=== PATIENT | female | born 1945 | race Caucasian/White ===

== ENCOUNTER → 2022-05-09 | Outpatient (CLI) | payer MEDICARE ==
[~2022-05-09] MED LIST: ASCO-262 PO; ASPI-999 PO; CALC-823 PO; CHOL200074 PO; DOXY100T2 PO; FERR-84 PO; GABA300C PO; GABA300S2 PO; MTP25TSR PO; MULT-1060 PO; PANT20TA18 PO; PANT40TA52 PO; SACU1TAB2 PO
== END ==
LOC: CARDFS 12:50
PROVIDERS: ATTEND Internal Medicine Cardiovascular Disease
DX: I10 Essential (primary) hypertension (principal)
CPT/HCPCS: 93306

== ENCOUNTER 2022-07-03 05:46 | Outpatient (CLI) | payer MEDICARE ==
[~2022-07-03] VITALS: Ht 168.9 cm; Wt 73.5 kg
[2022-07-03] MEDS ORDERED: SACU1TAB2 PO (11:55)
[2022-07-03] MEDS ORDERED: MTP25TSR PO (11:55)
== END 2022-07-03 11:57 | disposition home or self-care (01) ==
LOC: PREOP 05:46
PROVIDERS: ATTEND Surgery
DX: Z01.818 Encounter for other preprocedural examination (principal)

== ENCOUNTER 2022-07-15 10:07 | Day surgery (SDC) | payer MEDICARE ==
[~2022-07-15] VITALS: Ht 168.9 cm; Wt 73.5 kg
[2022-07-15] MEDS ORDERED: LACTATED RINGERS 1,000 ML IV STA (10:12)
[2022-07-15] MEDS ORDERED: HURRICAINE EXT TUBE (BENZOCAINE) XX PRN (10:15)
[2022-07-15] MEDS ORDERED: LACTATED RINGERS 1,000 ML IV ONE (10:16)
[2022-07-15 10:37] VITALS: BP 147/78
--- NOTE | 2022-07-15 10:52 | Progress Note-Pre Operative ---
Pre-Operative Progress Note Date of Available H&P: Jun 18, 2022 Date H&P Reviewed: Jul 15, 2022 Time H&P Reviewed: 10:49 History & Physical: H&P Reviewed, Patient Examed, No changes noted Pre-Operative Diagnosis: Epigastric pain JESSICA KIM DO Jul 15, 2022 10:52
[2022-07-15] MEDS ORDERED: proPOfol 200 MG/20 ML (DIPRIVAN) VIAL IV ONE (11:28)
[2022-07-15 11:45] VITALS: BP 160/79
[2022-07-15 11:50] VITALS: BP 120/58
[2022-07-15 12:10] VITALS: BP 158/97
--- NOTE | 2022-07-15 12:19 | Progress Note-Post Operative ---
Post-Operative Progess Note Surgeon (s)/Drafting Teacher (s) Surgeon JESSICA KIM DO Drafting Teacher: none Pre-Operative Diagnosis Epigastric pain Post-Operative Diagnosis Gastritis Hiatal hernia Gastric polyp Procedure & Operative Findings Date of Procedure 07/15/22 Procedure Performed/Findings EGD with polyp removal by hot snare EGD with bx PROCEDURE NOTE: After informed consent was obtained, the patient was brought to the endoscopy suite, placed in bed in left lateral decubitus position. She was administered IV sedation by the EMERGENCY DEPARTMENT MANAGER who then monitored vitals the entire time, heart rate, blood pressure and pulse ox and the scope was inserted down the mouth through the esophagus into the stomach. On the way down, noted some mild esophagitis, took a picture, pushed into the stomach and noted mass and gastritis. Pushed past the antrum into the duodenum; duodenum looked good. Pulled back and did a biopsy of the antrum. I thought at first the mass may be an ulcer, but realized it looked like a polyp. Elected to remove polyp with a hot snare; completely removed it. Then retroflexed the scope, saw a small hiatal hernia, took a picture of this and then pulled the scope into the GE junction In the GE junction did a biopsy. Pushed the scope back into the stomach, suctioned all the air out of the stomach. At this point pulled the scope up the esophagus and out the mouth. The patient tolerated the procedure, and she recovered in endoscopy suite. Anesthesia Type IV sedation by EMERGENCY DEPARTMENT MANAGER Estimated Blood Loss Estimated blood loss (mL): scant Specimens/Packing Specimens Removed antral bx GE jxn bx Gastric polyp JESSICA KIM DO Jul 15, 2022 12:19
--- NOTE | 2022-07-15 12:20 | Endoscopy Discharge Instruct ---
Endo Procedure/Findings Findings 1.: Polyp 2.: Gastritis 3.: Hiatal Hernia Discharge Instructions - Activity: You might feel a little sleepy until tomorrow. This is due to the medicine you received to relax you. Until tomorrow, you should: NOT drive a car, operate machinery or power tools. NOT drink any alcoholic beverages. NOT make any important decisions or sign importortant papers. Do not return to work until tomorrow, unless otherwise instructed. Resume previous activities tomorrow. Diet: Start by taking liquids. If you tolerate liquids, advance to solid food. 1.: EGD in 1 year Notify Physician - If you experience excessive bleeding, unusual abdominal pain, fever, or chest p ain, contact your doctor immediately. JESSICA KIM DO Jul 15, 2022 12:20
[2022-07-15 12:25] VITALS: BP 158/97
--- NOTE | 2022-07-15 14:43 | Anesthesia-General Post-Op ---
MAC Patient Condition Mental Status/LOC: Same as Preop Cardiovascular: Satisfactory Nausea/Vomiting: Absent Respiratory: Satisfactory Pain: Controlled Complications: Absent Post Op Complications Complications None Follow Up Care/Instructions Patient Instructions None needed. Anesthesiology Discharge Order Discharge Order Patient is doing well, no complaints, stable vital signs, no apparent adverse anesthesia problems. No complications reported per nursing. AMBER MCKAY CRNA Jul 15, 2022 14:43
== END 2022-07-15 12:30 | disposition home or self-care (01) ==
LOC: ENDO 10:07
PROVIDERS: ATTEND Surgery
DX: K31.7 Polyp of stomach and duodenum (principal); K29.60 Other gastritis without bleeding; K44.9 Diaphragmatic hernia without obstruction or gangrene; K21.00 Gastro-esophageal reflux disease with esophagitis, without bleeding; Z79.899 Other long term (current) drug therapy; Z79.82 Long term (current) use of aspirin

== ENCOUNTER → 2023-02-10 | Outpatient (CLI) | payer MEDICARE ==
[~2023-02-10] MED LIST changes: +DIATRIZOATE MEGLUM/SODIUM 37% 120 ML (GASTROGRAFIN) PO ONE; +IOHEXOL 350 MG/ML 100 ML (OMNIPAQUE 350) VIAL IV ONE; +NS 100 ML (IVPB) BAG IV ONE
--- NOTE | 2023-02-10 12:30 | Diagnostic Imaging Report ---
CT ABDOMEN/PELVIS W TECHNIQUE: Multiple contiguous axial images were obtained through the abdomen and pelvis after administration of intravenous contrast. All CT scans use one or more of the following dose optimizing techniques: automated exposure control, MA and/or KvP adjustment based on patient size and exam type or iterative reconstruction. INDICATION: Abnormal liver enzymes COMPARISON: 02/01/2022 FINDINGS: Lower chest: The lung bases are clear. No pericardial or pleural effusion. Peritoneum: No free intraperitoneal air or fluid. Liver and biliary system: Stable central cystic structure within the liver measuring 2.4 x 2.9 cm at its maximal aspect persists. Periportal edema is present. A small amount of oral contrast material is refluxed into the common bile duct likely due to prior sphincterotomy. Spleen and Pancreas: Spleen is normal. The pancreas enhances normally without mass lesion or peripancreatic inflammatory changes. Adrenals: Normal. tract: The kidneys enhance normally without suspicious mass or obstruction. Urinary bladder is distended without wall thickening. Hysterectomy. No adnexal mass. GI tract: Stomach is filled with contrast and air and has no wall thickening. No bowel obstruction. No pericolonic inflammatory changes. Normal appendix. Vasculature and Lymph nodes: Normal caliber aorta. No abdominal or pelvic lymphadenopathy. Musculoskeletal: Old healed fractures of the right superior and inferior pubic rami. IMPRESSION: 1. Stable appearance of liver with extensive pneumobilia likely owing to prior sphincterotomy. 2. No nodule to liver surface to suggest cirrhosis. Dictated by: Dictated on workstation # [id number]
== END ==
LOC: RAD 09:20
PROVIDERS: ATTEND Nurse Practitioner Family
DX: R94.5 Abnormal results of liver function studies (principal); R10.9 Unspecified abdominal pain
CPT/HCPCS: 74177